=== PATIENT | male | born 1965 | race Caucasian/White ===

== ENCOUNTER 2021-10-12 21:21 | Emergency (ER) | payer MEDICAID ==
[~2021-10-12] VITALS: Ht 188 cm; Wt 100.0 kg
[2021-10-12 21:24] VITALS: BP 147/100
== END 2021-10-12 22:16 | disposition home or self-care (01) ==
LOC: ER 21:21
DX: R33.9 Retention of urine, unspecified (principal); N40.0 Benign prostatic hyperplasia without lower urinary tract symptoms
CPT/HCPCS: 99281; Z7610